=== PATIENT | male | born 1970 ===

== ENCOUNTER 2022-04-15 08:59 | Day surgery (SDC) | payer BC ==
[~2022-04-15 08:59] MED LIST: Lactated Ringers 1,000 ML IV SCH; Sodium Chloride 0.9% 10 ML Syringe FLUSH PRN; Sodium Chloride 0.9% 2.5 ML Syringe FLUSH PRN; Sodium Chloride 0.9% 20 ML SDV IV PRN
[2022-04-15] MEDS ORDERED: Propofol 200 MG/20 ML SDV ONE ×2 (09:05→11:02)
[2022-04-15 12:19] VITALS: BP 151/88; PULSE 52
== END 2022-04-15 12:22 | disposition home or self-care (01) ==
LOC: MW.SDS 08:59
PROVIDERS: ATTEND Surgery
DX: Z12.11 Encounter for screening for malignant neoplasm of colon (principal); K21.9 Gastro-esophageal reflux disease without esophagitis; E66.9 Obesity, unspecified; Z68.31 Body mass index [BMI] 31.0-31.9, adult; Z80.0 Family history of malignant neoplasm of digestive organs; Z79.899 Other long term (current) drug therapy; Z98.890 Other specified postprocedural states
CPT/HCPCS: 45378; J2704; J7120